=== PATIENT | female | born 1975 | race Caucasian/White ===

== ENCOUNTER 2022-07-03 13:51 | Emergency (ER) | payer MEDICAID ==
[~2022-07-03] VITALS: Ht 167.6 cm; Wt 80.7 kg
== END 2022-07-03 19:10 | disposition home or self-care (01) ==
LOC: ED 13:51
DX: S63.621A Sprain of interphalangeal joint of right thumb, initial encounter (principal); Z88.5 Allergy status to narcotic agent; W17.89XA Other fall from one level to another, initial encounter
CPT/HCPCS: 73130; 99283-25